=== PATIENT | male | born 1985 | race Caucasian/White ===

== ENCOUNTER 2017-11-10 09:53 | Emergency (ER) | payer SELFPAY ==
[~2017-11-10] VITALS: Ht 177.8 cm; Wt 59.8 kg
[~2017-11-10 09:53] MED LIST: ATIVAN1 MG PO; NICOTINE PATCH1 EAC2 TD
[2017-11-10 10:27] LABS: HEMATOCRIT 47.1 % (38.0-50.0); HEMOGLOBIN 16.6 G/DL (12.5-16.6); MCHC 35.2 G/DL (30.0-36.0); MCV 90.8 FL (86-99); PLATELET COUNT 223 K/uL (156-360); RBC DIS.WIDTH-CV 11.9 % (11.8-14.6); RBC DIS.WIDTH-SD 39.8 % (39-53); RED BLOOD COUNT 5.19 M/uL (4.00-5.50); WHITE BLOOD COUNT 7.3 K/uL (4.1-10.2)
[2017-11-10 10:40] LABS: CHLORIDE 104 mEq/L (99-109); POTASSIUM 3.7 mEq/L (3.7-5.4); SODIUM 139 mEq/L (136-147)
[2017-11-10 10:41] LABS: GLUCOSE 74 mg/dL (70-99)
[2017-11-10 10:45] LABS: GFR ESTIMATE (CALCULATED) > 59 mL/min/ (58.99-99999)
[2017-11-10 10:46] LABS: UREA NITROGEN (BUN) 11 mg/dL (9-23)
[2017-11-10 11:36] LABS: APPEARANCE CLOUDY ((CLEAR)); BILIRUBIN NEGATIVE; BLOOD NEGATIVE; COLOR YELLOW ((YELLOW)); GLUCOSE (STRIP) NEGATIVE; KETONES NEGATIVE; LEUKOCYTES NEGATIVE; NITRITE NEGATIVE; PROTEIN (STRIP) NEGATIVE; SPECIFIC GRAVITY 1.023 (1.000-1.030)
[2017-11-10 11:55] LABS: RED BLOOD CELLS NONE SEEN /HPF (0-5)
[2017-11-10 11:56] LABS: WHITE BLOOD CELLS RARE /HPF (0-5)
[2017-11-10 11:57] LABS: BACTERIA 1+ /HPF; EPITHELIAL CELLS RARE /HPF; MUCUS 1+ /LPF
[2017-11-10 11:58] LABS: AMORPHOUS URATES CRYSTALS 1+
[2017-11-10 12:00] VITALS: BP 140/92
== END 2017-11-10 12:00 | disposition home or self-care (01) ==
LOC: EME 09:53
DX: R55 Syncope and collapse (principal); J45.909 Unspecified asthma, uncomplicated; F41.9 Anxiety disorder, unspecified; F17.200 Nicotine dependence, unspecified, uncomplicated; Z88.6 Allergy status to analgesic agent; Z88.5 Allergy status to narcotic agent
CPT/HCPCS: 80048; 81003; 85027; 93005; 99281; 99283